=== PATIENT | female | born 1940 | race African-American/Black ===

== ENCOUNTER 2017-11-06 05:19 | Inpatient (IN) | payer MEDICAID ==
[~2017-11-06] VITALS: Ht 157.5 cm; Wt 90.7 kg
[2017-11-06] MEDS ORDERED: LACTATED RINGERS 1,000 ML IV SCH (05:30)
[2017-11-06 06:45] LABS: CLARITY URINE CLEAR (CLEAR); COLOR URINE YELLOW (YELLOW); KETONES URINE TRACE (NEGATIVE); LEUKOCYTE ESTERASE URINE TRACE (NEGATIVE); NITRITE URINE NEGATIVE (NEGATIVE); OCCULT BLOOD URINE NEGATIVE (NEGATIVE); PH URINE 5.5 (4.5-8.0); PROTEIN URINE NEGATIVE (NEGATIVE); SPECIFIC GRAVITY URINE 1.023 (1.005-1.030)
[2017-11-06 06:58] LABS: BASOPHILS % 0.8 % (0.0-2.0); EOSINOPHILS % 3.7 % (0.0-5.0); HEMATOCRIT. 41.2 % (36.0-48.0); HEMOGLOBIN. 13.7 g/dL (12.0-16.0); LYMPHOCYTES % 37.8 % (20.0-50.0); MEAN CORPUSCULAR HEMOGLOBIN 28.1 pg (28.0-32.0); MEAN CORPUSCULAR VOLUME 84.8 fL (81.0-99.0); MEAN PLATELET VOLUME 8.5 fl (7.4-10.4); MONOCYTES % 9.4 % (2.0-8.0); NEUTROPHILS % 48.3 % (40.0-76.0); PLATELET 224 x1000/uL (130-400); RED BLOOD CELL COUNT 4.86 mill/uL (4.2-5.4)
[2017-11-06 07:01] LABS: INR 1.1; PARTIAL THROMBOPLASTIN TIME 26.4 sec (23.4-31.0); PROTHROMBIN TIME 11.2 sec (9.4-11.6)
[2017-11-06 07:02] LABS: CHLORIDE 107 mEq/L (98-107)
[2017-11-06] MEDS ORDERED: MORPHINE SULFATE/PF 1MG/ML 10ML AMP ONE (07:14)
[2017-11-06] MEDS ORDERED: METHYLENE BLUE 50 MG/10 ML AMP IV ONE (07:14)
[2017-11-06] MEDS ORDERED: NORMAL SALINE 0.9% 10 ML SYR ONE (07:15)
[2017-11-06] MEDS ORDERED: EPINEPHRINE 1:1000 1 MG/ML AMP ONE (07:15)
[2017-11-06] MEDS ORDERED: BUPIVACAINE HCL/EPINEPHRINE/PF 0.5%/0.0005 10ML ONE (07:15)
[2017-11-06] MEDS ORDERED: BACITRACIN 50,000 UNITS/VIAL ONE (07:16)
[2017-11-06] MEDS ORDERED: TRANEXAMIC ACID 1,000 MG in SODIUM CHLORIDE 0.9% 100 ML IV SCH (07:30)
[2017-11-06] MEDS ORDERED: ONDANSETRON HCL 4MG/2ML VIAL IV PRN ×2 (07:45→09:30)
[2017-11-06] MEDS ORDERED: HYDROCODONE/ACETAMINOPHEN 5/325MG TABLET PO PRN ×2 (07:45)
[2017-11-06] MEDS ORDERED: ACETAMINOPHEN 325MG TABLET PO PRN (07:45)
[2017-11-06] MEDS ORDERED: MIDAZOLAM HCL 2 MG/2 ML VIAL ONE (07:48)
[2017-11-06] MEDS ORDERED: ONDANSETRON HCL 4MG/2ML VIAL ONE (07:48)
[2017-11-06] MEDS ORDERED: FENTANYL CITRATE/PF 50MCG/ML 2ML VIAL ONE (07:48)
[2017-11-06] MEDS ORDERED: PROPOFOL 200MG/20ML VIAL IV ONE ×2 (07:48→08:58)
[2017-11-06] MEDS ORDERED: DEXAMETHASONE 4MG/ML 1ML VIAL ONE (07:48)
[2017-11-06] MEDS ORDERED: LIDOCAINE HCL/PF 1% 10 MG/ML 5ML VIAL ONE (08:14)
[2017-11-06] MEDS ORDERED: HYDROMORPHONE HCL/PF 2MG/ML (OR) ONE (08:33)
[2017-11-06] MEDS ORDERED: VECURONIUM BROMIDE 10 MG/VIAL IV ONE (09:02)
[2017-11-06] MEDS ORDERED: HYDROMORPHONE HCL/PF 2MG/ML CPJ IV PRN (09:30)
[2017-11-06] MEDS ORDERED: LABETALOL HCL 5MG/ML VIAL 20ML IV PRN (09:30)
[2017-11-06] MEDS ORDERED: MEPERIDINE HCL/PF 25MG/ML CPJ IV PRN (09:30)
[2017-11-06] MEDS ORDERED: ROCURONIUM BROMIDE 10MG/ML VIAL 5ML IV ONE (10:18)
[2017-11-06] MEDS ORDERED: DICL75TA5 PO (10:26)
[2017-11-06] MEDS ORDERED: AMLO10TA80 PO (10:26)
[2017-11-06] MEDS ORDERED: SUCR1TAB30 PO (10:26)
[2017-11-06] MEDS ORDERED: DOCU100T PO (10:26)
[2017-11-06] MEDS ORDERED: ASPI-1159 PO (10:26)
[2017-11-06] MEDS ORDERED: SKIN ADHESIVE 0.7 GM EA TOP ONE (11:48)
[2017-11-06] MEDS ORDERED: LABETALOL HCL 5MG/ML VIAL 20ML IV ONE (12:02)
[2017-11-06] MEDS ORDERED: GLYCOPYRROLATE 0.2 MG/ML 2ML VIAL ONE ×2 (12:21→12:30)
[2017-11-06] MEDS ORDERED: NEOSTIGMINE METHYLSULFATE 1MG/ML 10 ML VIAL ONE (12:21)
[2017-11-06] MEDS ORDERED: HYDROMORPHONE PCA 10MG/50ML IV PRN (14:30)
[2017-11-06] MEDS ORDERED: ONDANSETRON INJ IV PRN (14:30)
[2017-11-06] MEDS ORDERED: NALOXONE INJ IV PRN (14:30)
[2017-11-06 16:00] VITALS: BP 145/73
[2017-11-06] MEDS ORDERED: MAGNESIUM HYDROXIDE 400MG/5ML 30ML UDC PO PRN (16:12)
[2017-11-06] MEDS ORDERED: DOCUSATE SODIUM 100MG CAPSULE PO SCH (17:00)
[2017-11-06 20:00] VITALS: BP 169/73
[2017-11-07] VITALS: BP 177/75
[2017-11-07] MEDS ORDERED: AMLODIPINE 10MG TABLET PO NR (00:30)
[2017-11-07 04:00] VITALS: BP 134/111
[2017-11-07] MEDS: SUCRALFATE 1 G/10 ML UDC PO SCH ×2 (06:36→18:19)
[2017-11-07 08:00] VITALS: BP 167/93
[2017-11-07] MEDS: DOCUSATE SODIUM 100MG CAPSULE PO SCH ×2 (09:10→18:19)
[2017-11-07] MEDS: AMLODIPINE 10MG TABLET PO SCH (09:11)
[2017-11-07] MEDS: ASPIRIN 81MG TABLET PO SCH (09:11)
[2017-11-07] MEDS: ENOXAPARIN 30MG/0.3ML SYR SUBCUT SCH ×2 (09:12→21:43)
[2017-11-07 09:49] LABS: BASOPHILS % 0.1 % (0.0-2.0); EOSINOPHILS % 0.1 % (0.0-5.0); HEMATOCRIT. 37.9 % (36.0-48.0); HEMOGLOBIN. 12.4 g/dL (12.0-16.0); LYMPHOCYTES % 14.9 % (20.0-50.0); MEAN CORPUSCULAR HEMOGLOBIN 27.5 pg (28.0-32.0); MEAN CORPUSCULAR VOLUME 83.7 fL (81.0-99.0); MEAN PLATELET VOLUME 8.8 fl (7.4-10.4); MONOCYTES % 13.7 % (2.0-8.0); NEUTROPHILS % 71.2 % (40.0-76.0); PLATELET 224 x1000/uL (130-400); RED BLOOD CELL COUNT 4.52 mill/uL (4.2-5.4); RED CELL DISTRIBUTION WIDTH 13.9 % (11.6-14.6)
[2017-11-07 10:22] LABS: CHLORIDE 104 mEq/L (98-107)
[2017-11-07 12:00] VITALS: BP 120/61
[2017-11-07] MEDS: FERROUS SULFATE 325MG TABLET PO SCH ×2 (13:46→18:19)
[2017-11-07 16:00] VITALS: BP 139/87
[2017-11-08] VITALS: BP 154/121
[2017-11-08] MEDS: CELECOXIB 200MG CAPSULE PO SCH ×3 (00:02→21:09)
[2017-11-08 04:00] VITALS: BP 176/81
[2017-11-08] MEDS: SUCRALFATE 1 G/10 ML UDC PO SCH ×2 (07:03→21:09)
[2017-11-08] MEDS: FERROUS SULFATE 325MG TABLET PO SCH ×3 (07:03→21:09)
[2017-11-08 07:13] LABS: CHLORIDE 105 mEq/L (98-107)
[2017-11-08 08:00] VITALS: BP 154/74
[2017-11-08] MEDS: ENOXAPARIN 30MG/0.3ML SYR SUBCUT SCH ×2 (09:32→21:12)
[2017-11-08] MEDS: DOCUSATE SODIUM 100MG CAPSULE PO SCH ×2 (09:33→21:09)
[2017-11-08] MEDS: ASPIRIN 81MG TABLET PO SCH (09:44)
[2017-11-08] MEDS: TRAMADOL 50MG TABLET PO PRN ×2 (09:44→14:08)
[2017-11-08] MEDS: AMLODIPINE 10MG TABLET PO SCH (09:44)
[2017-11-08 12:00] VITALS: BP 130/65
[2017-11-08 16:00] VITALS: BP 151/62
[2017-11-08 20:00] VITALS: BP 154/64
[2017-11-09] VITALS: BP 147/69
[2017-11-09 04:00] VITALS: BP 147/97
[2017-11-09] MEDS: SUCRALFATE 1 G/10 ML UDC PO SCH (06:50)
[2017-11-09] MEDS: TRAMADOL 50MG TABLET PO PRN ×2 (06:50→14:51)
[2017-11-09] MEDS: ENOXAPARIN 30MG/0.3ML SYR SUBCUT SCH (09:15)
[2017-11-09] MEDS: ASPIRIN 81MG TABLET PO SCH (09:15)
[2017-11-09] MEDS: CELECOXIB 200MG CAPSULE PO SCH (09:15)
[2017-11-09] MEDS: FERROUS SULFATE 325MG TABLET PO SCH ×2 (09:15→12:26)
[2017-11-09] MEDS: AMLODIPINE 10MG TABLET PO SCH (09:15)
[2017-11-09] MEDS: DOCUSATE SODIUM 100MG CAPSULE PO SCH (09:15)
[2017-11-09] MEDS ORDERED: POTASSIUM CHLORIDE 20MEQ TABLET SR PO NR (12:15)
[2017-11-09 13:06] VITALS: BP 131/53
[2017-11-09 14:51] VITALS: BP 131/53
== END 2017-11-09 15:30 | disposition home or self-care (01) | DRG 302 ==
LOC: ORIP 05:19 → 6EST 15:59
PROVIDERS: ADMIT Internal Medicine; ATTEND Internal Medicine
PROC: 0SRD0J9 Replacement of Left Knee Joint with Synthetic Substitute, Cemented, Open Approach (ICD-10-PCS; principal; 2017-11-06 07:30)
DX: M17.12 Unilateral primary osteoarthritis, left knee (principal); E66.01 Morbid (severe) obesity due to excess calories; M65.9 Synovitis and tenosynovitis, unspecified; Z68.36 Body mass index [BMI] 36.0-36.9, adult
CPT/HCPCS: 36415; 73560; 80048; 81003; 82962; 85025; 85610; 85730; 86850; 86900; 88305; 88311; 93005; 97110; 97163; 97166; 97530; 97535; A4216; C1713; C1776; C1893; J0171; J1100; J1170; J1650; J2250; J2274; J2405; J2704; J2710; J3010; J3490; J7050; L1830; Q9968

== ENCOUNTER 2017-11-19 11:15 | Inpatient (IN) | payer MEDICAID ==
[~2017-11-19] VITALS: Ht 157.5 cm; Wt 78.9 kg
[~2017-11-19 11:15] MED LIST: AMLO10TA80 PO; ASPI-1159 PO; DICL75TA5 PO; DOCU100T PO; SUCR1TAB30 PO
[2017-11-19 12:11] LABS: BASOPHILS % 0.7 % (0.0-2.0); EOSINOPHILS % 2.7 % (0.0-5.0); HEMATOCRIT. 33.6 % (36.0-48.0); HEMOGLOBIN. 10.7 g/dL (12.0-16.0); LYMPHOCYTES % 28.6 % (20.0-50.0); MEAN CORPUSCULAR HEMOGLOBIN 27.6 pg (28.0-32.0); MEAN CORPUSCULAR VOLUME 86.4 fL (81.0-99.0); MEAN PLATELET VOLUME 7.3 fl (7.4-10.4); MONOCYTES % 7.9 % (2.0-8.0); NEUTROPHILS % 60.1 % (40.0-76.0); PLATELET 515 x1000/uL (130-400); RED BLOOD CELL COUNT 3.89 mill/uL (4.2-5.4); RED CELL DISTRIBUTION WIDTH 14.9 % (11.6-14.6)
[2017-11-19] MEDS ORDERED: ACETAMINOPHEN 325MG TABLET PO PRN (12:15)
[2017-11-19 12:17] LABS: CHLORIDE 108 mEq/L (98-107)
[2017-11-19 12:18] LABS: PROTHROMBIN TIME 10.7 sec (9.4-11.6)
[2017-11-19 16:00] VITALS: BP 168/68
[2017-11-19] MEDS ORDERED: CLONIDINE 0.1MG TABLET PO PRN (16:45)
[2017-11-19 17:00] VITALS: BP 168/68
[2017-11-19 20:00] VITALS: BP 150/57
[2017-11-19] MEDS: HYDROCODONE/ACETAMINOPHEN 5/325MG TABLET PO PRN (20:14)
[2017-11-20] VITALS: BP 155/54
[2017-11-20] MEDS: HYDROCODONE/ACETAMINOPHEN 5/325MG TABLET PO PRN (00:29)
[2017-11-20 04:00] VITALS: BP 118/61
[2017-11-20 08:00] VITALS: BP 135/58
[2017-11-20] MEDS: AMLODIPINE 10MG TABLET PO SCH (09:08)
[2017-11-20] MEDS ORDERED: EPINEPHRINE 1:1000 1 MG/ML AMP ONE (09:53)
[2017-11-20] MEDS ORDERED: BUPIVACAINE HCL/EPINEPHRINE/PF 0.5%/0.0005 10ML ONE (09:53)
[2017-11-20] MEDS ORDERED: BACITRACIN 50,000 UNITS/VIAL ONE ×2 (09:54→12:40)
[2017-11-20] MEDS ORDERED: METOCLOPRAMIDE HCL 10MG/2ML VIAL ONE (10:31)
[2017-11-20] MEDS ORDERED: LIDOCAINE HCL/PF 1% 10 MG/ML 5ML VIAL ONE (10:31)
[2017-11-20] MEDS ORDERED: GLYCOPYRROLATE 0.2 MG/ML 2ML VIAL ONE (10:31)
[2017-11-20] MEDS ORDERED: MIDAZOLAM HCL 2 MG/2 ML VIAL ONE ×2 (10:31→11:05)
[2017-11-20] MEDS ORDERED: PROPOFOL 200MG/20ML VIAL IV ONE (10:31)
[2017-11-20] MEDS ORDERED: FENTANYL CITRATE/PF 50MCG/ML 2ML VIAL ONE ×3 (10:31→12:34)
[2017-11-20] MEDS ORDERED: ONDANSETRON HCL 4MG/2ML VIAL ONE (10:31)
[2017-11-20] MEDS ORDERED: CEFAZOLIN SODIUM 1000MG/VIAL ONE (10:32)
[2017-11-20] MEDS ORDERED: PHENYLEPHRINE HCL 10 MG/ML 1ML (IV VIAL) IV ONE (11:28)
[2017-11-20] MEDS ORDERED: GENTAMICIN SULF 40MG/ML 2ML VIAL ONE (12:40)
[2017-11-20] MEDS ORDERED: VANCOMYCIN HCL 500 MG/VIAL ONE (13:08)
[2017-11-20] MEDS ORDERED: ROPIVACAINE HCL 10MG/ML 20 ML VIAL EPI ONE (13:09)
[2017-11-20] MEDS ORDERED: TRANEXAMIC ACID 1,000 MG in SODIUM CHLORIDE 0.9% 100 ML IV NR (13:15)
[2017-11-20] MEDS ORDERED: TRANEXAMIC ACID 1,000 MG/10 ML IV NR (13:30)
[2017-11-20] MEDS ORDERED: THROMBIN (BOVINE) 5000 UNITS/VIAL TOP ONE (13:41)
[2017-11-20] MEDS ORDERED: GELATIN SPONGE,COMPRESSED SZ 100 ONE ×2 (13:42→13:47)
[2017-11-20] MEDS ORDERED: SODIUM CHLORIDE 0.9% 1,000 ML IV ONE (14:09)
[2017-11-20] MEDS ORDERED: MEPERIDINE HCL/PF 25MG/ML CPJ IV PRN (14:15)
[2017-11-20] MEDS ORDERED: HYDROMORPHONE HCL/PF 2MG/ML CPJ IV PRN (14:15)
[2017-11-20] MEDS ORDERED: ONDANSETRON HCL 4MG/2ML VIAL IV PRN (14:15)
[2017-11-20] MEDS ORDERED: BACITRACIN ZINC 15GM TUBE TOP ONE (14:18)
[2017-11-20] MEDS ORDERED: ACETAMINOPHEN 325MG TABLET PO PRN (14:45)
[2017-11-20] MEDS ORDERED: MAGNESIUM HYDROXIDE 400MG/5ML 30ML UDC PO PRN (14:45)
[2017-11-20 16:00] VITALS: BP 151/56
[2017-11-20] MEDS: MORPHINE SULFATE 4 MG/ML CPJ (NOT FOR IM USE) IV PRN (18:01)
[2017-11-20] MEDS: CEFEPIME 2,000 MG in DEXT 5% WATER 100 ML IV SCH (18:01)
[2017-11-20] MEDS: FERROUS SULFATE 325MG TABLET PO SCH (18:02)
[2017-11-20] MEDS: DOCUSATE SODIUM 100MG CAPSULE PO SCH (18:02)
[2017-11-20] MEDS ORDERED: CEFAZOLIN 2,000 MG in DEXT 5% WATER 100 ML IV SCH (18:30)
[2017-11-20 20:00] VITALS: BP 175/79
[2017-11-20] MEDS: VANCOMYCIN 1 G PREMIX 200 ML IV SCH (20:06)
[2017-11-21] VITALS: BP 144/58
[2017-11-21 04:00] VITALS: BP 139/50
[2017-11-21] MEDS: HYDROCODONE/ACETAMINOPHEN 5/325MG TABLET PO PRN ×3 (04:02→16:43)
[2017-11-21] MEDS: CEFEPIME 2,000 MG in DEXT 5% WATER 100 ML IV SCH ×2 (06:00→15:01)
[2017-11-21 07:12] LABS: CHLORIDE 107 mEq/L (98-107)
[2017-11-21 07:17] LABS: HEMATOCRIT. 27.1 % (36.0-48.0); HEMOGLOBIN. 8.7 g/dL (12.0-16.0); MEAN CORPUSCULAR HEMOGLOBIN 27.6 pg (28.0-32.0); MEAN CORPUSCULAR VOLUME 85.5 fL (81.0-99.0); MEAN PLATELET VOLUME 7.5 fl (7.4-10.4); PLATELET 393 x1000/uL (130-400); RED BLOOD CELL COUNT 3.17 mill/uL (4.2-5.4); RED CELL DISTRIBUTION WIDTH 15.4 % (11.6-14.6)
[2017-11-21 08:00] VITALS: BP 131/59
[2017-11-21] MEDS ORDERED: LIDOCAINE HCL/PF 1% 10 MG/ML 5ML VIAL ONE (08:44)
[2017-11-21] MEDS ORDERED: ENOXAPARIN 30MG/0.3ML SYR SUBCUT SCH (09:00)
[2017-11-21] MEDS: AMLODIPINE 10MG TABLET PO SCH (09:06)
[2017-11-21] MEDS: ZINC SULFATE 220 MG ( 50 ) CAPSULE PO SCH (09:06)
[2017-11-21] MEDS: DOCUSATE SODIUM 100MG CAPSULE PO SCH ×2 (09:07→16:43)
[2017-11-21] MEDS ORDERED: POTASSIUM CHLORIDE 20MEQ TABLET SR PO SCH (10:45)
[2017-11-21 11:18] LABS: PLATELET ESTIMATE NORMAL
[2017-11-21] MEDS: FERROUS SULFATE 325MG TABLET PO SCH ×2 (11:41→17:50)
[2017-11-21 12:00] VITALS: BP 142/60
[2017-11-21] MEDS ORDERED: CEFEPIME 2,000 MG in DEXT 5% WATER 100 ML IV SCH (12:30)
[2017-11-21 16:00] VITALS: BP 117/51
[2017-11-21 20:00] VITALS: BP 107/74
[2017-11-21] MEDS: VANCOMYCIN 1 G PREMIX 200 ML IV SCH (22:37)
[2017-11-22] VITALS: BP 153/62
[2017-11-22 04:00] VITALS: BP 145/68
[2017-11-22] MEDS: CEFEPIME 2,000 MG in DEXT 5% WATER 100 ML IV SCH ×2 (05:25→13:48)
[2017-11-22 06:36] LABS: BASOPHILS % 0.7 % (0.0-2.0); EOSINOPHILS % 1.8 % (0.0-5.0); HEMATOCRIT. 25.8 % (36.0-48.0); HEMOGLOBIN. 8.4 g/dL (12.0-16.0); LYMPHOCYTES % 18.8 % (20.0-50.0); MEAN CORPUSCULAR HEMOGLOBIN 27.8 pg (28.0-32.0); MEAN CORPUSCULAR VOLUME 85.5 fL (81.0-99.0); MEAN PLATELET VOLUME 7.7 fl (7.4-10.4); MONOCYTES % 8.2 % (2.0-8.0); NEUTROPHILS % 70.5 % (40.0-76.0); PLATELET 389 x1000/uL (130-400); RED BLOOD CELL COUNT 3.02 mill/uL (4.2-5.4); RED CELL DISTRIBUTION WIDTH 14.6 % (11.6-14.6)
[2017-11-22 07:14] LABS: CHLORIDE 107 mEq/L (98-107)
[2017-11-22 08:00] VITALS: BP 175/68
[2017-11-22] MEDS: FERROUS SULFATE 325MG TABLET PO SCH ×3 (08:52→17:29)
[2017-11-22] MEDS: ENOXAPARIN 40MG/0.4ML SYR SUBCUT SCH (08:52)
[2017-11-22] MEDS: ZINC SULFATE 220 MG ( 50 ) CAPSULE PO SCH (08:52)
[2017-11-22] MEDS: DOCUSATE SODIUM 100MG CAPSULE PO SCH ×2 (08:52→17:29)
[2017-11-22] MEDS: AMLODIPINE 10MG TABLET PO SCH (08:58)
[2017-11-22 12:00] VITALS: BP 158/62
[2017-11-22 16:00] VITALS: BP 184/73
[2017-11-22] MEDS: LORAZEPAM 1MG TABLET PO PRN ×2 (16:10→21:54)
[2017-11-22] MEDS: CEFTRIAXONE 2 G in DEXTROSE 5% WATER 50 ML IV SCH ×2 (17:00→20:40)
[2017-11-22 18:00] VITALS: BP 184/73
[2017-11-22] MEDS: TRAMADOL 50MG TABLET PO PRN (21:55)
[2017-11-23] VITALS: BP 124/68
[2017-11-23 04:00] VITALS: BP 150/56
[2017-11-23 07:00] LABS: BASOPHILS % 0.6 % (0.0-2.0); EOSINOPHILS % 2.1 % (0.0-5.0); HEMATOCRIT. 27.6 % (36.0-48.0); HEMOGLOBIN. 9.3 g/dL (12.0-16.0); LYMPHOCYTES % 18.9 % (20.0-50.0); MEAN CORPUSCULAR HEMOGLOBIN 28.2 pg (28.0-32.0); MEAN CORPUSCULAR VOLUME 83.9 fL (81.0-99.0); MEAN PLATELET VOLUME 7.6 fl (7.4-10.4); MONOCYTES % 11.4 % (2.0-8.0); PLATELET 425 x1000/uL (130-400); RED BLOOD CELL COUNT 3.29 mill/uL (4.2-5.4); RED CELL DISTRIBUTION WIDTH 14.2 % (11.6-14.6)
[2017-11-23 07:36] LABS: CHLORIDE 103 mEq/L (98-107)
[2017-11-23] MEDS: DOCUSATE SODIUM 100MG CAPSULE PO SCH ×2 (08:47→17:00)
[2017-11-23] MEDS: AMLODIPINE 10MG TABLET PO SCH (08:47)
[2017-11-23] MEDS: FERROUS SULFATE 325MG TABLET PO SCH ×3 (08:47→17:50)
[2017-11-23] MEDS: ZINC SULFATE 220 MG ( 50 ) CAPSULE PO SCH (08:47)
[2017-11-23] MEDS: ENOXAPARIN 40MG/0.4ML SYR SUBCUT SCH (08:48)
[2017-11-23] MEDS ORDERED: POTASSIUM CHLORIDE 20MEQ TABLET SR PO NR (11:15)
[2017-11-23 12:00] VITALS: BP 148/65
[2017-11-23] MEDS: CEFTRIAXONE 2 G in DEXTROSE 5% WATER 50 ML IV SCH (14:19)
[2017-11-23] MEDS: LORAZEPAM 1MG TABLET PO PRN ×2 (17:03→22:58)
[2017-11-23 17:16] LABS: AMMONIA 33 uMol/L (<32)
[2017-11-23 17:33] LABS: FOLIC ACID (FOLATE) SERUM 15.9 ng/mL (>5.38)
[2017-11-23 20:00] VITALS: BP 161/61
[2017-11-23] MEDS: DIPHENHYDRAMINE 25MG CAPSULE PO PRN (22:57)
[2017-11-24] VITALS: BP 157/65
[2017-11-24 01:19] LABS: ETHANOL BLOOD < 10 mg/dL
[2017-11-24 01:25] LABS: T4 FREE 1.84 ng/dL (0.76-1.46)
[2017-11-24 04:00] VITALS: BP_SYST 113; BP_SYST 147; BP_DIAS 58; BP_DIAS 69
[2017-11-24 08:00] VITALS: BP 158/62
[2017-11-24 08:38] LABS: HEMATOCRIT 28.9 % (36.0-48.0); HEMOGLOBIN 9.5 g/dL (12.0-16.0); MEAN CORPUSCULAR HEMOGLOBIN 27.6 pg (28.0-32.0); MEAN CORPUSCULAR VOLUME 83.9 fL (81.0-99.0); PLATELET 459 x1000/uL (130-400); RED BLOOD CELL COUNT 3.44 mill/uL (4.2-5.4); RED CELL DISTRIBUTION WIDTH 14.8 % (11.6-14.6)
[2017-11-24 08:58] LABS: CHLORIDE 105 mEq/L (98-107)
[2017-11-24] MEDS: DOCUSATE SODIUM 100MG CAPSULE PO SCH ×2 (10:21→16:32)
[2017-11-24] MEDS: ENOXAPARIN 40MG/0.4ML SYR SUBCUT SCH (10:21)
[2017-11-24] MEDS: ZINC SULFATE 220 MG ( 50 ) CAPSULE PO SCH (10:21)
[2017-11-24] MEDS: FERROUS SULFATE 325MG TABLET PO SCH ×3 (10:21→18:03)
[2017-11-24] MEDS: AMLODIPINE 10MG TABLET PO SCH (10:21)
[2017-11-24] MEDS: TRAMADOL 50MG TABLET PO PRN ×2 (10:22→22:47)
[2017-11-24 12:00] VITALS: BP 132/57
[2017-11-24] MEDS: CEFTRIAXONE 2 G in DEXTROSE 5% WATER 50 ML IV SCH (14:48)
[2017-11-24 16:00] VITALS: BP 130/82
[2017-11-24] MEDS: MORPHINE SULFATE 4 MG/ML CPJ (NOT FOR IM USE) IV PRN (16:37)
[2017-11-24 20:00] VITALS: BP 156/78
[2017-11-25] VITALS: BP 128/62
[2017-11-25 04:00] VITALS: BP 144/65
[2017-11-25 08:00] VITALS: BP 143/64
[2017-11-25] MEDS: FERROUS SULFATE 325MG TABLET PO SCH ×3 (08:25→17:07)
[2017-11-25] MEDS: ZINC SULFATE 220 MG ( 50 ) CAPSULE PO SCH (08:25)
[2017-11-25] MEDS: AMLODIPINE 10MG TABLET PO SCH (08:26)
[2017-11-25] MEDS: TRAMADOL 50MG TABLET PO PRN (08:26)
[2017-11-25] MEDS: DOCUSATE SODIUM 100MG CAPSULE PO SCH ×2 (08:27→16:35)
[2017-11-25] MEDS: ENOXAPARIN 30MG/0.3ML SYR SUBCUT SCH ×2 (08:28→20:22)
[2017-11-25 08:34] LABS: HEMATOCRIT. 28.8 % (36.0-48.0); HEMOGLOBIN. 9.5 g/dL (12.0-16.0); MEAN CORPUSCULAR HEMOGLOBIN 27.6 pg (28.0-32.0); MEAN PLATELET VOLUME 7.5 fl (7.4-10.4); PLATELET 401 x1000/uL (130-400); RED BLOOD CELL COUNT 3.43 mill/uL (4.2-5.4); RED CELL DISTRIBUTION WIDTH 14.7 % (11.6-14.6)
[2017-11-25 08:44] LABS: CHLORIDE 105 mEq/L (98-107)
[2017-11-25 12:00] VITALS: BP 147/66
[2017-11-25] MEDS ORDERED: POTASSIUM CHLORIDE 20MEQ/PACKET PO NR (12:45)
[2017-11-25] MEDS: CEFTRIAXONE 2 G in DEXTROSE 5% WATER 50 ML IV SCH (15:04)
[2017-11-25 15:19] LABS: PLATELET ESTIMATE NORMAL
[2017-11-25 16:00] VITALS: BP 157/54
[2017-11-25 20:00] VITALS: BP 169/70
[2017-11-25] MEDS: DIPHENHYDRAMINE 25MG CAPSULE PO PRN (20:22)
[2017-11-26] VITALS: BP 154/67
[2017-11-26] MEDS: TRAMADOL 50MG TABLET PO PRN ×2 (02:52→09:58)
[2017-11-26 04:00] VITALS: BP 140/56
[2017-11-26 07:41] VITALS: BP 118/67
[2017-11-26 08:33] LABS: HEMATOCRIT. 27.9 % (36.0-48.0); HEMOGLOBIN. 9.1 g/dL (12.0-16.0); MEAN CORPUSCULAR HEMOGLOBIN 27.3 pg (28.0-32.0); MEAN CORPUSCULAR VOLUME 83.6 fL (81.0-99.0); MEAN PLATELET VOLUME 7.4 fl (7.4-10.4); PLATELET 399 x1000/uL (130-400); RED BLOOD CELL COUNT 3.34 mill/uL (4.2-5.4); RED CELL DISTRIBUTION WIDTH 14.6 % (11.6-14.6)
[2017-11-26] MEDS: FERROUS SULFATE 325MG TABLET PO SCH ×3 (08:47→16:50)
[2017-11-26] MEDS: DOCUSATE SODIUM 100MG CAPSULE PO SCH ×2 (08:48→16:45)
[2017-11-26] MEDS: ZINC SULFATE 220 MG ( 50 ) CAPSULE PO SCH (08:48)
[2017-11-26] MEDS: AMLODIPINE 10MG TABLET PO SCH (08:48)
[2017-11-26] MEDS: ENOXAPARIN 30MG/0.3ML SYR SUBCUT SCH (08:49)
[2017-11-26 09:17] LABS: CHLORIDE 105 mEq/L (98-107)
[2017-11-26 12:00] VITALS: BP 157/72
[2017-11-26] MEDS: CEFTRIAXONE 2 G in DEXTROSE 5% WATER 50 ML IV SCH (15:31)
[2017-11-26 16:17] VITALS: BP 130/57
[2017-11-26 17:22] VITALS: BP 130/57
[2017-11-26 20:06] LABS: PLATELET ESTIMATE NORMAL
== END 2017-11-26 18:53 | DRG 791 ==
LOC: ER 11:15 → 6EST 12:04 → EDBEDREQSVC 12:06 → EDBEDREQTM 12:06 → EDBEDREQ 12:06 → ENRESERV 12:32 → ER 13:17 → 6EST 11-22 20:00
PROVIDERS: ADMIT Internal Medicine; ATTEND Internal Medicine
PROC: 0SPW0JZ Removal of Synthetic Substitute from Left Knee Joint, Tibial Surface, Open Approach (ICD-10-PCS; 2017-11-20)
PROC: 0SRD0JZ Replacement of Left Knee Joint with Synthetic Substitute, Open Approach (ICD-10-PCS; 2017-11-20)
PROC: 0S9D3ZZ Drainage of Left Knee Joint, Percutaneous Approach (ICD-10-PCS; principal; 2017-11-20 10:00)
PROC: 05H533Z Insertion of Infusion Device into Right Subclavian Vein, Percutaneous Approach (ICD-10-PCS; 2017-11-21)
PROC: B5161ZA Fluoroscopy of Right Subclavian Vein using Low Osmolar Contrast, Guidance (ICD-10-PCS; 2017-11-21)
PROC: B546ZZA Ultrasonography of Right Subclavian Vein, Guidance (ICD-10-PCS; 2017-11-21)
PROC: 02HV33Z Insertion of Infusion Device into Superior Vena Cava, Percutaneous Approach (ICD-10-PCS; 2017-11-24)
PROC: B5181ZA Fluoroscopy of Superior Vena Cava using Low Osmolar Contrast, Guidance (ICD-10-PCS; 2017-11-24)
PROC: B548ZZA Ultrasonography of Superior Vena Cava, Guidance (ICD-10-PCS; 2017-11-24)
DX: T81.31XA Disruption of external operation (surgical) wound, not elsewhere classified, initial encounter (principal); G92 Toxic encephalopathy; E44.0 Moderate protein-calorie malnutrition; M00.9 Pyogenic arthritis, unspecified; E72.20 Disorder of urea cycle metabolism, unspecified; T84.54XA Infection and inflammatory reaction due to internal left knee prosthesis, initial encounter; D64.9 Anemia, unspecified; E87.8 Other disorders of electrolyte and fluid balance, not elsewhere classified; N39.0 Urinary tract infection, site not specified; E78.5 Hyperlipidemia, unspecified; E66.9 Obesity, unspecified; E87.6 Hypokalemia; E78.00 Pure hypercholesterolemia, unspecified; I10 Essential (primary) hypertension; B96.20 Unspecified Escherichia coli [E. coli] as the cause of diseases classified elsewhere; K76.0 Fatty (change of) liver, not elsewhere classified; T84.83XA Hemorrhage due to internal orthopedic prosthetic devices, implants and grafts, initial encounter; M25.062 Hemarthrosis, left knee; K80.20 Calculus of gallbladder without cholecystitis without obstruction; R47.01 Aphasia; Z96.651 Presence of right artificial knee joint; R47.1 Dysarthria and anarthria; Y83.8 Other surgical procedures as the cause of abnormal reaction of the patient, or of later complication, without mention of misadventure at the time of the procedure; M17.12 Unilateral primary osteoarthritis, left knee; B95.4 Other streptococcus as the cause of diseases classified elsewhere; B96.4 Proteus (mirabilis) (morganii) as the cause of diseases classified elsewhere; Y92.89 Other specified places as the place of occurrence of the external cause; Z68.31 Body mass index [BMI] 31.0-31.9, adult; Z82.49 Family history of ischemic heart disease and other diseases of the circulatory system
CPT/HCPCS: 36415; 36569; 70450; 70551; 71045; 73562; 76700; 76937; 77001; 80048; 80053; 80202; 82140; 82607; 82746; 83036; 83735; 84439; 84443; 84481; 85025; 85027; 85610; 85651; 86140; 86850; 86900; 87040; 87070; 87075; 87077; 87086; 87102; 87116; 87186; 87205; 88305; 88311; 89050; 92610; 93005; 93970; 97163; 97166; 97530; 99285; C1725; C1893; G0482; J0171; J0690; J0692; J0696; J1580; J1650; J2250; J2270; J2370; J2405; J2704; J2765; J2795; J3010; J3370; J3490; J7030; J7050; J7060; L1830; Q0163